=== PATIENT | female | born 1990 | race Caucasian/White ===

== ENCOUNTER 2021-02-02 17:05 | Inpatient (IN) | payer OTHER ==
[2021-02-02 18:34] VITALS: BMI 36.6
[2021-02-02] MEDS ORDERED: CITRIC ACID/SODIUM CITRATE 30 ML UNIT-DOSE CUP PO ONE ×2 (19:38→19:41)
[2021-02-02] MEDS ORDERED: ELECTROLYTE-148 SOLN 500 ML IV ONE (19:38)
[2021-02-02] MEDS ORDERED: ELECTROLYTE-148 SOLN 1,000 ML IV SCH (19:45)
[2021-02-02 19:54] LABS: BASO % 0.2 % (0-2.0); EOS % 0.6 % (0-4.5); HEMATOCRIT 35.8 % (32.4-45.2); LYMPH % 19.1 % (8-40); MCH 31.6 pg (25.7-33.7); MCHC 33.6 g/dl (32.0-36.0); MEAN CELL VOLUME 94.2 fl (80-96); MEAN PLT VOLUME 11.3 fl (7.5-11.1); MONO % 7.7 % (3.8-10.2); NEUT % 72.4 % (42.8-82.8); PLATELET COUNT 270 K/MM3 (134-434); RDW 13.6 % (11.6-15.6)
[2021-02-02 19:59] LABS: INR 0.83 (0.83-1.09); PROTHROMBIN TIME (PATIENT) 10.1 SEC (9.7-13.0)
[2021-02-02 20:02] LABS: ACTIVATED PTT 18.1 SECONDS (25.2-36.5)
[2021-02-02 20:27] LABS: POTASSIUM 5.2 mmol/L (3.5-5.1)
[2021-02-02 20:28] LABS: CALCIUM 9.3 mg/dL (8.5-10.1)
[2021-02-02 20:30] LABS: BLOOD UREA NITROGEN 11.6 mg/dL (7-18)
[2021-02-02 20:32] LABS: CREATININE 0.5 mg/dL (0.55-1.3)
[2021-02-02 21:16] LABS: HIV INTERPRETATION NEGATIVE (NEGATIVE)
[2021-02-02] MEDS ORDERED: METHYLERGONOVINE MALEATE 0.2 MG/1 ML AMP IM PRN (21:20)
[2021-02-02] MEDS ORDERED: IBUPROFEN 800 MG/8 ML IJ IVPB PRN (21:20)
[2021-02-02] MEDS ORDERED: SENNOSIDES/DOCUSATE COMBO (SENNA PLUS) TABLET (UD) PO PRN (21:20)
[2021-02-02] MEDS ORDERED: OXYTOCIN 20 UNITS in 0.9% NS 20 UNIT/1,000 ML INFUS.BAG IV ONE (21:22)
[2021-02-02] MEDS: OXYTOCIN 20 UNITS in 0.9% NS 20 UNIT/1,000 ML INFUS.BAG IV SCH (21:30)
[2021-02-02] MEDS ORDERED: NIFEdipine E.R. 30 MG TABLET ONE (21:36)
[2021-02-02] MEDS: NIFEdipine E.R. 30 MG TABLET PO SCH (21:40)
[2021-02-02] MEDS ORDERED: LABETALOL HCL 200 MG TABLET (FP) ONE (22:34)
[2021-02-02] MEDS: LABETALOL HCL 200 MG TABLET (FP) PO SCH (22:35)
[2021-02-03] MEDS ORDERED: OXYTOCIN 20 UNITS in 0.9% NS 20 UNIT/1,000 ML INFUS.BAG IV ONE (06:16)
[2021-02-03 07:10] LABS: BASO % 0.3 % (0-2.0); EOS % 0.5 % (0-4.5); HEMATOCRIT 35.3 % (32.4-45.2); HEMOGLOBIN 12.2 GM/dL (10.7-15.3); LYMPH % 16.4 % (8-40); MCH 32.1 pg (25.7-33.7); MCHC 34.5 g/dl (32.0-36.0); MEAN PLT VOLUME 10.3 fl (7.5-11.1); MONO % 6.6 % (3.8-10.2); NEUT % 76.2 % (42.8-82.8); PLATELET COUNT 238 K/MM3 (134-434); RBC 3.79 M/mm3 (3.60-5.2); RDW 13.5 % (11.6-15.6); WHITE BLOOD COUNT 12.1 K/mm3 (4.0-10.0)
[2021-02-03] MEDS: LABETALOL HCL 200 MG TABLET (FP) PO SCH ×2 (09:57→21:37)
[2021-02-03] MEDS: PRENATAL VITAMINS W/ FOLIC ACID TABLET (FP) PO SCH (09:58)
[2021-02-03] MEDS: NIFEdipine E.R. 30 MG TABLET PO SCH (09:58)
[2021-02-03] MEDS: oxyCODONE HCL 5 MG TABLET PO PRN ×3 (14:32→20:50)
[2021-02-03] MEDS: SIMETHICONE 80 MG TAB.CHEW (FP) PO PRN ×2 (14:32→20:50)
[2021-02-03] MEDS: ACETAMINOPHEN 325 MG TABLET (FP) PO PRN ×2 (14:33→20:50)
[2021-02-03] MEDS ORDERED: BISACODYL 10 MG SUPP.RECT RC PRN (21:20)
[2021-02-03] MEDS: OXYTOCIN 20 UNITS in 0.9% NS 20 UNIT/1,000 ML INFUS.BAG IV SCH (22:04)
[2021-02-04] MEDS: IBUPROFEN 600 MG TABLET (FP) PO PRN ×3 (06:12→22:42)
[2021-02-04] MEDS: oxyCODONE HCL 5 MG TABLET PO PRN (06:12)
[2021-02-04] MEDS: SIMETHICONE 80 MG TAB.CHEW (FP) PO PRN ×3 (06:13→22:41)
[2021-02-04] MEDS: LABETALOL HCL 200 MG TABLET (FP) PO SCH ×2 (09:53→22:03)
[2021-02-04] MEDS: NIFEdipine E.R. 30 MG TABLET PO SCH (09:54)
[2021-02-04] MEDS: PRENATAL VITAMINS W/ FOLIC ACID TABLET (FP) PO SCH (09:54)
[2021-02-04] MEDS: ACETAMINOPHEN 325 MG TABLET (FP) PO PRN ×2 (15:43→22:41)
[2021-02-05] MEDS: SIMETHICONE 80 MG TAB.CHEW (FP) PO PRN (10:18)
[2021-02-05] MEDS: LABETALOL HCL 200 MG TABLET (FP) PO SCH (10:18)
[2021-02-05] MEDS: IBUPROFEN 600 MG TABLET (FP) PO PRN ×2 (10:18→13:33)
[2021-02-05] MEDS: ACETAMINOPHEN 325 MG TABLET (FP) PO PRN ×2 (10:19→13:32)
[2021-02-05] MEDS: NIFEdipine E.R. 30 MG TABLET PO SCH (10:20)
[2021-02-05] MEDS: PRENATAL VITAMINS W/ FOLIC ACID TABLET (FP) PO SCH (10:20)
[2021-02-05 12:05] VITALS: BP 138/85; PULSE 89; TEMP 98
== END 2021-02-05 14:40 | disposition home or self-care (01) | DRG 540 ==
LOC: JLDR 17:05 → J3W 23:45
PROVIDERS: ADMIT Obstetrics & Gynecology; ATTEND Obstetrics & Gynecology
PROC: 10D00Z1 Extraction of Products of Conception, Low, Open Approach (ICD-10-PCS; principal; 2021-02-02)
DX: O14.14 Severe pre-eclampsia complicating childbirth (principal); O36.5930 Maternal care for other known or suspected poor fetal growth, third trimester, not applicable or unspecified; Z3A.36 36 weeks gestation of pregnancy; Z37.0 Single live birth
CPT/HCPCS: 36415; 80048; 85025; 85610; 85730; 86780; 86850; 86900; 86901; 87389; 88307-TC; C9803; U0003